=== PATIENT | female | born 1975 | race Two or more races ===

== ENCOUNTER 2020-08-15 08:30 | Outpatient (CLI) | payer OTHER | END 2020-08-15 23:59 | disposition home or self-care (01) | LOC: LAB 08:30 | PROVIDERS: ATTEND Student in an Organized Health Care Education/Training Program | DX: Z01.812 Encounter for preprocedural laboratory examination (principal); Z20.822 Contact with and (suspected) exposure to COVID-19 | CPT/HCPCS: 87426; C9803; U0003 ==

== ENCOUNTER 2020-08-20 11:45 | Day surgery (SDC) | payer OTHER ==
[~2020-08-20 11:45] MED LIST: ANESTHESIA TRAY IN PYXIS 1 EA TRAY MC ONE; BUPIVACAINE 0.5 % PF 150 MG/30 ML VIAL ONE; EPINEPHRINE (1:1000) 1 MG/ML AMPUL ONE
[2020-08-20] MEDS ORDERED: MIDAZOLAM HCL 2 MG/2ML VIAL ONE (13:21)
[2020-08-20] MEDS ORDERED: HYDROMORPHONE INJ 2 MG/ML DISP.SYRIN ONE (13:22)
[2020-08-20] MEDS ORDERED: FENTANYL PF 250MCG/5ML AMPUL ONE (13:22)
[2020-08-20] MEDS ORDERED: FAMOTIDINE/PF INJ 20 MG/2 ML VIAL IV ONE (13:22)
[2020-08-20] MEDS ORDERED: MORPHINE SULFATE/PF 10 MG/10ML (1MG/ML) AMPUL ONE (15:15)
[2020-08-20] MEDS ORDERED: ONDANSETRON HCL/PF 4 MG/2 ML VIAL ONE (16:57)
[2020-08-20] MEDS ORDERED: METOCLOPRAMIDE HCL 10 MG/2 ML VIAL ONE (17:33)
== END 2020-08-20 19:10 | disposition home or self-care (01) ==
LOC: DS 11:45
PROVIDERS: ATTEND Student in an Organized Health Care Education/Training Program
DX: M25.851 Other specified joint disorders, right hip (principal); M94.251 Chondromalacia, right hip; E66.01 Morbid (severe) obesity due to excess calories
CPT/HCPCS: 29916; 36415; 73501; 84703; 86850; A4217; A4649; A6209; C1713; J0171; J0690; J1170; J2250; J2274; J2405; J2704; J2765 ×2; J3010; J3490 ×4; J7030